=== PATIENT | female | born 1985 | race Caucasian/White ===

== ENCOUNTER 2016-10-15 06:31 | Inpatient (IN) | payer MEDICAID ==
[~2016-10-15] VITALS: Ht 170.2 cm; Wt 106.0 kg
[2016-10-15] MEDS ORDERED: ONDANSETRON HCL 4 MG/2 ML VIAL IV ONE (07:30)
[2016-10-15] MEDS ORDERED: SODIUM CHLORIDE 0.9% 1,000 ML IV ONE ×2 (07:30→10:30)
[2016-10-15] MEDS ORDERED: HYDROmorphone HCL 2 MG/ML VL IV ONE (07:30)
[2016-10-15 07:48] LABS: Urine RBC None Seen /hpf (0 - 4)
[2016-10-15 07:56] LABS: Basophils # (auto) 0 uL; Basophils % (auto) 0.3 % (0.0-2.0); Eosinophils # (auto) 0 uL; Eosinophils % (auto) 0.2 % (0.0-7.0); Hematocrit 39.7 % (36.0-46.0); Hemoglobin 13.3 g/dL (12.2-16.2); Lymphocytes # (auto) 1.6 uL; Lymphocytes % (auto) 12.2 % (10.0-50.0); Mean Corpuscular Hemoglobin 29.3 pg (28.0-32.0); Mean Corpuscular Hgb Conc. 33.5 g/dL (32.0-36.0); Mean Corpuscular Volume 87.3 fL (80.0-100.0); Mean Platelet Volume 7.7 fL (7.4-10.4); Monocytes # (auto) 0.6 uL; Neutrophils # (auto) 10.6 uL; Neutrophils % (auto) 82.3 % (37.0-80.0); Platelet Count (auto) 335 10^3/uL (140-450); Red Cell Distribution Width 13.8 % (11.6-16.0); White Blood Cell 12.8 10^3/uL (4.4-10.8)
[2016-10-15 08:14] LABS: Urine Bilirubin Negative (Negative); Urine Blood Negative /uL (Negative); Urine Color Yellow (Yellow); Urine Glucose Normal (Normal); Urine Ketone 2+ (Negative); Urine Mucus FEW (None Seen); Urine Nitrite Negative (Negative); Urine Squamous Epithelial Cell FEW /hpf (<5); Urine Urobilinogen Normal (Negative)
[2016-10-15 08:23] LABS: Albumin 3.8 g/dL (3.4-5.0); BUN/Creatinine Ratio 17.4; Bilirubin, Total 0.8 mg/dL (0.2-1.0); Calcium 9.3 mg/dL (8.5-10.1); Potassium 3.4 mmol/L (3.5-5.1); Total Protein 7.1 g/dL (6.4-8.2)
[2016-10-15] MEDS ORDERED: cefTRIAXone 1GM/50ML D5W 50 ML IV ONE (09:15)
[2016-10-15] MEDS ORDERED: POTASSIUM CHL 10% (20 MEQ/15ML) ORAL SOLN PO ONE (09:15)
[2016-10-15] MEDS: SODIUM CHLORIDE 0.9% 1,000 ML IV SCH ×2 (10:23→21:15)
[2016-10-15] MEDS ORDERED: NITROGLYCERIN 0.4 MG SL TAB SL PRN (10:30)
[2016-10-15] MEDS ORDERED: ACETAMINOPHEN 500 MG TAB PO PRN (10:30)
[2016-10-15] MEDS ORDERED: MORPHINE SULF INJ 2 MG/ML SYRINGE 1ML IV PRN (10:30)
[2016-10-15] MEDS ORDERED: PROCHLORPERAZINE EDISYLATE 5 MG/ML 2ML VIAL IV PRN (10:30)
[2016-10-15] MEDS ORDERED: HYDROcodone-ACET 5/325MG TAB PO PRN (10:30)
[2016-10-15] MEDS ORDERED: KETOROLAC TROMETH 30 MG/ML 1ML VIAL IV ONE (10:30)
[2016-10-15] MEDS ORDERED: TEMAZEPAM 15 MG CAP PO PRN (10:30)
[2016-10-15] MEDS ORDERED: HYDR-4072 PO (12:21)
[2016-10-15 16:46] VITALS: BP 126/78
[2016-10-15] MEDS ORDERED: MORPHINE SULF INJ 2 MG/ML SYRINGE 1ML ONE (17:59)
[2016-10-15] MEDS: MORPHINE SULF INJ 2 MG/ML SYRINGE 1ML IV PRN ×2 (18:07→22:22)
[2016-10-15 20:00] VITALS: BP 140/82
[2016-10-15 22:00] VITALS: BP 140/82
[2016-10-15] MEDS: LORazepam 0.5 MG TAB PO PRN (22:23)
[2016-10-15] MEDS: FAMOTIDINE 20 MG TAB PO SCH (22:49)
[2016-10-16] VITALS (7 sets, daily range): BP systolic 106–132; BP diastolic 62–80
[2016-10-16] MEDS: MORPHINE SULF INJ 2 MG/ML SYRINGE 1ML IV PRN ×3 (05:55→22:07)
[2016-10-16] MEDS: SODIUM CHLORIDE 0.9% 1,000 ML IV SCH ×2 (06:00→17:21)
[2016-10-16] MEDS: cefTRIAXone 1GM/50ML D5W 50 ML IV SCH (11:57)
[2016-10-16] MEDS: FAMOTIDINE 20 MG TAB PO SCH ×2 (11:57→22:07)
[2016-10-16] MEDS: LORazepam 0.5 MG TAB PO PRN ×2 (12:02→22:26)
[2016-10-16] MEDS ORDERED: POTASSIUM CHL 20 Meq TABLET PO ONE (12:30)
[2016-10-16 13:27] LABS: Basophils # (auto) 0 uL; Basophils % (auto) 0.2 % (0.0-2.0); Eosinophils # (auto) 0.1 uL; Eosinophils % (auto) 1.8 % (0.0-7.0); Hematocrit 37.2 % (36.0-46.0); Hemoglobin 12.7 g/dL (12.2-16.2); Lymphocytes % (auto) 26.6 % (10.0-50.0); Mean Corpuscular Hemoglobin 29.4 pg (28.0-32.0); Mean Corpuscular Hgb Conc. 34.1 g/dL (32.0-36.0); Mean Corpuscular Volume 86.4 fL (80.0-100.0); Mean Platelet Volume 7.5 fL (7.4-10.4); Monocytes # (auto) 0.6 uL; Monocytes % (auto) 8.6 % (0.0-12.0); Neutrophils # (auto) 4.7 uL; Neutrophils % (auto) 62.8 % (37.0-80.0); Platelet Count (auto) 304 10^3/uL (140-450); Red Cell Distribution Width 13.7 % (11.6-16.0); White Blood Cell 7.4 10^3/uL (4.4-10.8)
[2016-10-16 13:50] LABS: BUN/Creatinine Ratio 10.8; Calcium 8.7 mg/dL (8.5-10.1); Potassium 3.8 mmol/L (3.5-5.1)
[2016-10-16 21:14] LABS: INR 1.04 (0.9-1.15); Prothrombin Time 11.2 sec (9.37-12.3)
[2016-10-17] VITALS (7 sets, daily range): BP systolic 109–139; BP diastolic 67–82
[2016-10-17] MEDS: MORPHINE SULF INJ 2 MG/ML SYRINGE 1ML IV PRN ×4 (03:58→21:51)
[2016-10-17] MEDS: SODIUM CHLORIDE 0.9% 1,000 ML IV SCH ×3 (03:59→22:23)
[2016-10-17 06:30] LABS: Basophils # (auto) 0 uL; Basophils % (auto) 0.5 % (0.0-2.0); Eosinophils # (auto) 0.2 uL; Eosinophils % (auto) 3.3 % (0.0-7.0); Hematocrit 34.5 % (36.0-46.0); Hemoglobin 11.5 g/dL (12.2-16.2); Lymphocytes # (auto) 3.1 uL; Lymphocytes % (auto) 42.7 % (10.0-50.0); Mean Corpuscular Hemoglobin 29.3 pg (28.0-32.0); Mean Corpuscular Hgb Conc. 33.3 g/dL (32.0-36.0); Mean Corpuscular Volume 87.9 fL (80.0-100.0); Mean Platelet Volume 7.9 fL (7.4-10.4); Monocytes # (auto) 0.7 uL; Monocytes % (auto) 9.8 % (0.0-12.0); Neutrophils # (auto) 3.2 uL; Neutrophils % (auto) 43.7 % (37.0-80.0); Platelet Count (auto) 278 10^3/uL (140-450); Red Cell Distribution Width 13.6 % (11.6-16.0); White Blood Cell 7.3 10^3/uL (4.4-10.8)
[2016-10-17 06:52] LABS: Potassium 3.7 mmol/L (3.5-5.1)
[2016-10-17 07:02] LABS: Calcium 8.4 mg/dL (8.5-10.1)
[2016-10-17] MEDS: cefTRIAXone 1GM/50ML D5W 50 ML IV SCH (08:42)
[2016-10-17] MEDS: FAMOTIDINE 20 MG TAB PO SCH ×2 (09:24→21:50)
[2016-10-17] MEDS ORDERED: fentaNYL CITRATE 100 MCG/2 ML VL ONE (14:15)
[2016-10-17] MEDS ORDERED: MIDAZOLAM HCL 1MG/1ML-2 ML VIAL ONE (14:16)
[2016-10-17] MEDS ORDERED: MEPERIDINE HCL (50 MG/ML) 1 ML VIAL ONE (14:16)
[2016-10-17] MEDS ORDERED: PROPOFOL 10 MG/ML 20 ML IV ONE (14:26)
[2016-10-17] MEDS ORDERED: DEXAMETHASONE SOD PHOS 10MG/1ML VIAL INJ ONE (14:26)
[2016-10-17] MEDS ORDERED: SUCCINYLCHOLINE CHLORIDE 20 MG/ML 10ML VIAL IV ONE (14:31)
[2016-10-17] MEDS ORDERED: IOHEXOL 300 MG/ML 100ML BOTTLE IJ ONE (14:32)
[2016-10-17] MEDS ORDERED: LIDOCAINE 2% JELLY 11ml (GLYDO) ONE (14:32)
[2016-10-17] MEDS ORDERED: KETOROLAC TROMETH 30 MG/ML 1ML VIAL IV ONE (15:00)
[2016-10-17] MEDS ORDERED: MANNITOL FTV 25% 12.5 GM/50 ML 50 ML IV ONE (15:00)
[2016-10-17] MEDS ORDERED: MORPHINE SULF INJ 2 MG/ML SYRINGE 1ML IV PRN (15:00)
[2016-10-17] MEDS ORDERED: hydrALAZINE HCL 20 MG/ML VL IV PRN (15:00)
[2016-10-17] MEDS ORDERED: LABETALOL HCL 5 MG/ML 4ML SYRINGE IV PRN (15:00)
[2016-10-17] MEDS ORDERED: ePHEDrine SULFATE 50 MG/ML AMP IV PRN (15:00)
[2016-10-17] MEDS ORDERED: MIDAZOLAM HCL 1MG/1ML-2 ML VIAL IV PRN (15:00)
[2016-10-17] MEDS ORDERED: ONDANSETRON HCL 4 MG/2 ML VIAL IV ONE (15:00)
[2016-10-17] MEDS ORDERED: HYDROmorphone HCL 2 MG/ML VL IV PRN (15:00)
[2016-10-17] MEDS: LORazepam 0.5 MG TAB PO PRN (21:50)
[2016-10-18] MEDS: SODIUM CHLORIDE 0.9% 1,000 ML IV SCH (01:50)
[2016-10-18 05:38] VITALS: BP 139/75
[2016-10-18 08:00] VITALS: BP 119/63
[2016-10-18] MEDS ORDERED: BISACODYL 10 MG RECT SUPP PR ONE (09:30)
[2016-10-18] MEDS: cefTRIAXone 1GM/50ML D5W 50 ML IV SCH (09:53)
[2016-10-18] MEDS: FAMOTIDINE 20 MG TAB PO SCH (09:53)
[2016-10-18] MEDS ORDERED: NOR5T PO (11:04)
[2016-10-18] MEDS ORDERED: LEVO500T3 PO (11:04)
[2016-10-18 11:15] VITALS: BP 119/63
== END 2016-10-18 14:20 | disposition home or self-care (01) | DRG 465 ==
LOC: EDBD 06:31 → ER 06:47 → TELE-E-ADS 06:48 → ER 10:58 → TELE-CENTR 13:37
PROVIDERS: ADMIT Internal Medicine; ATTEND Nurse Practitioner Acute Care
PROC: 0T768DZ Dilation of Right Ureter with Intraluminal Device, Via Natural or Artificial Opening Endoscopic (ICD-10-PCS; 2016-10-17)
PROC: 0TF6XZZ Fragmentation in Right Ureter, External Approach (ICD-10-PCS; principal; 2016-10-17 14:19)
DX: N13.2 Hydronephrosis with renal and ureteral calculous obstruction (principal); E87.0 Hyperosmolality and hypernatremia; N12 Tubulo-interstitial nephritis, not specified as acute or chronic; D64.9 Anemia, unspecified; E87.6 Hypokalemia; E66.9 Obesity, unspecified; N13.4 Hydroureter; Z82.0 Family history of epilepsy and other diseases of the nervous system; Z97.5 Presence of (intrauterine) contraceptive device; Z71.89 Other specified counseling; Z82.49 Family history of ischemic heart disease and other diseases of the circulatory system; Z83.3 Family history of diabetes mellitus; Z68.36 Body mass index [BMI] 36.0-36.9, adult
CPT/HCPCS: 36415; 74000; 74176; 80048; 80053; 81001; 82150; 83690; 84702; 85025; 85610; 85730; 87040; 87086; 96361; 96365; 96375; J0330; J0696; J1100; J1885; J2250; J2405; J2704